=== PATIENT | female | born 1975 | race African-American/Black ===

== ENCOUNTER 2016-03-09 20:16 | Emergency (ER) | payer MEDICARE, OTHER ==
[2016-03-09] MEDS ORDERED: Albuterol Sulfate 2.5 mg/0.5 ml Neb ONE (20:52)
[2016-03-09] MEDS ORDERED: predniSONE 20 MG TAB ONE (21:29)
--- NOTE | 2016-03-09 22:03 | RAD ---
SINGLE VIEW OF THE CHEST 03/09/16 INDICATION: Headache, chills, bodyaches. IMPRESSION: No acute cardiopulmonary abnormality. The examination does not appear appreciably changed from the c omparison dated 03/22/14. POS: [facility]
--- NOTE | 2016-03-09 22:19 | ERRECORD ---
[facility] HPI FLU-LIKE SYNDROME (20:50 SROB) CHIEF COMPLAINT: Patient presents for evaluation of body aches, Patient presents for evaluation of fatigue, Patient presents for evaluation of fever, Patient presents for evaluation of upper respiratory infection, Patient presents for evaluation of wheezing and cough with headache. CHIEF COMPLAINT: Patient presents for evaluation of body aches, Patient presents for evaluation of fatigue, Patient presents for evaluation of fever, Patient presents for evaluation of upper respiratory infection, Patient presents for evaluation of wheezing and cough with headache. Her daugheter and have the same illness. HISTORIAN: History provided by patient. LOCATION: No localizing symptoms. QUALITY: Pain is dull in nature, described as aching. SEVERITY: Maximum severity of pain rated as 6/10, Current severity of pain rated as 6/10. TIME COURSE: Gradual onset of symptoms, 3, days priror to arrival, Symptoms are worsening. ASSOCIATED WITH: Associated with cough, Associated with headache, Associated with shortness of breath. EXACERBATED BY: Patient's condition exacerbated by nothing. RELIEVED BY: Patient's condition relieved by nothing. IMMUNIZATION STATUS: Flu vaccine not up to date. ROS (20:52 SROB) CONSTITUTIONAL: Historian reports fatigue, reports fever, reports malaise. EYES: Negative eye review of systems. ENT: Historian reports rhinorrhea. CARDIOVASCULAR: Negative cardiovascular review of systems. RESPIRATORY: Historian reports cough, reports shortness of breath, reports wheezing. GI: Negative gastrointestinal review of systems. GENITOURINARY FEMALE: Negative genitourinary review of systems. MUSCULOSKELETAL: Historian reports myalgias. SKIN: Negative skin review of systems. NEUROLOGIC: Historian denies confusion, denies dizziness, denies focal weakness, denies gait changes, reports headache, reports lethargy, denies paresthesias. HEMO/LYMPHATIC: Normal hematologic/lymphatic system review. PSYCHIATRIC: Negative psychiatric review of systems. PAST MEDICAL HISTORY (20:41 LHAL) MEDICAL HISTORY: Flu vaccine up to date, Tetanus immunization up to date, Pneumococcal vaccine up to date, Past medical history includes history of diabetes, Type II, Past medical history includes history of hyperlipidemia, high cholesterol, Past medical history includes history of hypertension, Past medical &a-1R&a+25V*p+0X*[id number]*c202B*c15G*c2P*p-0X&a-25V&a+1R Name: Pallavi Atkins : 1975 F40 MedRec: [id number] AcctNum: [id number] Prepared: Josh Mar 09, 2016 22:19 by Interface Page 1 of 4 pMD [facility] EMERGENCY RECORD history includes pulmonary disease, asthma. FEMALE SURGICAL HISTORY: IUD REMOVAL. PSYCHIATRIC HISTORY: Psychiatric history includes, anxiety, depression, schizophrenia, Psychiatric history includes history of post-traumatic stress disorder. SOCIAL HISTORY: Patient denies alcohol use, Patient denies drug use, Patient currently uses tobacco, smokes cigarettes, daily, Patient smokes 1/2 packs per day, Lives at home, with family. KNOWN ALLERGIES No Known Allergies (Unconfirmed) No Known Drug Allergies CURRENT MEDICATIONS (20:40 LHAL) lisinopril: TABLET : Strength - 10 mg : ORAL Patient Dose: 40 mg Oral once a day. Lantus: CARTRIDGE (ML) : Strength - 100 unit/mL : SUBCUTANEOUS Patient Dose: 40 units Subcutaneous 2 times a day. hydrochlorothiazide: TABLET : Strength - 25 mg : ORAL Patient Dose: 25 mg Oral 2 times a day. metFORMIN: TABLET : Strength - 1,000 mg : ORAL Patient Dose: 1000 mg Oral 2 times a day. ProAir HFA: HFA AEROSOL WITH ADAPTER (GRAM) : Strength - 90 mcg : INHALATION Patient Dose: 2 puff(s) Inhaler As Needed. albuterol sulfate: VIAL, NEBULIZER (EA) : Strength - 2.5 mg/0.5 mL : INHALATION Patient Dose: 1 units Nebulize As Needed. amLODIPine: TABLET : Strength - 10 mg : ORAL Patient Dose: 10 mg Oral once a day (in the morning). atorvastatin: TABLET : Strength - 40 mg : ORAL Patient Dose: 40 mg Oral. atenolol: TABLET : Strength - 25 mg : ORAL Patient Dose: 25 mg Oral once a day. cyclobenzaprine: TABLET : Strength - 10 mg : ORAL Patient Dose: 1 tab(s) Oral every 4 hours prn.muscle spasm. naproxen: TABLET : Strength - 500 mg : ORAL Patient Dose: 1 tab(s) Oral 2 times a day (after meals).please take 1 tablet twice a day as needed for pain, please take with food and a glass of water. &a-1R&a+25V*p+0X*[id number]*c202B*c15G*c2P*p-0X&a-25V&a+1R Name: Pallavi Atkins : 1975 F40 MedRec: [id number] AcctNum: [id number] Prepared: Sat Mar 09, 2016 22:19 by Interface Page 2 of 4 pMD [facility] EMERGENC[facility] RECORD VITAL SIGNS VITAL SIGNS: BP: 143/67 (Sitting), Pulse: 103 (Regular), Resp: 18 (Non-Labored), Temp: 98.6 (Oral), Pain: 6 (Constant), O2 sat: 96 on Room Air, Time: 03/09/2016 20:38. (20:38 LHAL) BP: 128/70, Pulse: 101, Resp: 18, Temp: 97.6, Pain: 5, O2 sat: 96 on RA, Time: 03/09/2016 22:05. (22:05 LHAL) PHYSICAL EXAM (20:53 SROB) CONSTITUTIONAL: Vital signs reviewed, Patient afebrile, Pulse, tachycardic. HEAD: Head exam normal. EYES: Eye exam normal. ENT: Ear exam normal, Nose exam included findings of, turbinate mucosa discharge, Pharynx exam normal, Uvula exam normal. NECK: Neck exam normal, Neck exam included findings of normal range of motion, Trachea midline, Tenderness. RESPIRATORY CHEST: Wheezing present, Rhonchi present. CARDIOVASCULAR: Cardiovascular assessment normal. ABDOMEN FEMALE: Abdominal exam normal. BACK: Back exam normal. UPPER EXTREMITY: Upper extremity exam normal. LOWER EXTREMITY: Lower extremity exam normal. NEURO: Neuro exam normal. SKIN: Skin exam normal. PSYCHIATRIC: Psychiatric exam normal. RADIOLOGYINTERPRETATION (21:50 SROB) CHEST: Chest films negative, no infiltrates, no pneumothorax, no hemothorax, no masses, no cardiomegaly, no congestive heart failure, no effusion, no free air. MEDICATION ADMINISTRATION SUMMARY Drug Name: predniSONE oral, Dose Ordered: 2 tab(s), Route: Oral, Status: Given, Time: 21:47 03/09/2016, Drug Name: DuoNeb, Dose Ordered: 3 mL, Route: Nebulize, Status: Given, Time: 21:20 03/09/2016, Drug Name: Proventil solution for nebulization, Dose Ordered: 5 mg, Route: Nebulize, Status: Given, Time: 20:51 03/09/2016, Detailed record available in Medication Service section. DOCTOR NOTES (21:50 SROB) RE-EVALUATION: The patient's condition has improved, Barely wheezing now. Fels better. PROBLEM LIST No recorded problems &a-1R&a+25V*p+0X*[id number]*c202B*c15G*c2P*p-0X&a-25V&a+1R Name: Pallavi Atkins : 1975 F40 MedRec: [id number] AcctNum: [id number] Prepared: Sat Mar 09, 2016 22:19 by Interface Page 3 of 4 pMD [facility] EMERGENCY RECORD DIAGNOSIS (21:54 SROB) FINAL: PRIMARY: acute asthma attack, ADDITIONAL: Upper respiratory infection, Viral infection. PRESCRIPTION ProAir HFA: HFA AEROSOL WITH ADAPTER (GRAM) : 90 mcg : INHALATION : Quantity: 1-2 Unit: puff(s) Route: INHALATION Schedule: every 4 hours prn Dispense: 1 Unit: vial(s) May substitute. Refills: 1 . (21:56 SROB) NOTES: Dispense Pro air plus spacer No Refills. (21:56 SROB) predniSONE oral: TABLET : 20 mg : ORAL : Quantity: 2 Unit: tab(s) Route: ORAL Schedule: once a day (in the morning) Dispense: 10 Unit: tab(s) May substitute. Refills: No Refills . (21:57 SROB) NOTES: No Refills. (21:57 SROB) acetaminophen-codeine: TABLET : 325 mg-30 mg : ORAL : Quantity: 1-2 Unit: tab(s) Route: ORAL Schedule: every 6 hours PRN Dispense: 30 Unit: tab(s) May substitute. Refills: No Refills . (21:57 SROB) NOTES: No Refills. (21:57 SROB) azithromycin oral: TABLET : 250 mg : ORAL : Quantity: 1 Unit: tab(s) Route: ORAL Schedule: once a day (in the morning) Dispense: 6 Unit: tab(s) May substitute. Refills: No Refills . (21:59 SROB) NOTES: TAke 2 tabs on first day and then one daily No Refills. (21:59 SROB) DISPOSITION PATIENT: Disposition Type: Discharge, Disposition: *Discharge Home, Disposition Transport: Ambulatory, Condition: Good. (21:55 SROB) Patient left the department. (22:16 LHAL) Jones: LHAL=RON Armas, Rebekah SROB=MD Osmany, Victoriano &a-1R&a+25V*p+0X*[id number]*c202B*c15G*c2P*p-0X&a-25V&a+1R Name: Pallavi Atkins : 1975 F40 MedRec: [id number] AcctNum: [id number] Prepared: Josh Mar 09, 2016 22:19 by Interface Page 4 of 4 pMD [facility]TDD
--- NOTE | 2016-03-09 22:29 | PICIS ---
[facility] EMERGENCY RECORD TRIAGE (20:39 LHAL) TRIAGE NOTES: MCCRAY, CHILLS, BODY ACHES, COUGH X 3 DAYS. (20:39 LHAL) PATIENT: NAME: Pallavi Atkins, AGE: 40, GENDER: female, : Mon 1975, TIME OF GREET: Sat Mar 09, 2016 20:17, PREFERRED LANGUAGE: Uzbek, ETHNICITY: Not or , ECODE BILLING MAP: [facility], SSN: [id number], Zip Code: [address], KG WEIGHT: [phone], PHONE: , , , PERSON ID: [id number], PCP: MD Solitario Katherine. (20:39 LHAL) COMPLAINT: FLU LIKE SYMPTOMS. (20:39 LHAL) ADMISSION: URGENCY: 5 Fast Track, ADMISSION SOURCE: Home, TRANSPORT: CAR, BED: TRIAGE. (20:39 LHAL) ASSESSMENT: Assessment: MCCRAY, CHILLS, BODY ACHES, COUGH X 3 DAYS, Symptoms began 3 DAYS AGO. (20:41 LHAL) PAIN: Patient complains of pain described as, aching, on a scale 0-10 patient rates pain as 6, Location GENERALIZED BODY ACHES, Pain is constant, No aggravating factors, No relieving factors. (20:41 LHAL) IMMUNIZATIONS: Flu vaccine not up to date, Tetanus immunization up to date, Pneumococcal vaccine not up to date, Notes: TAKING NYQUIL. (20:41 LHAL) SIRS SCORING: Heart Rate 55-109 (0), Temp range 96.8-101.1 (0), respiratory rate 12-24 (0), Mental Status altered: no (0), Yes, Infection or Suspected Infection. (20:41 LHAL) TRIAGE SCREENING: Patient denies suicidal ideation, Patient denies presence of domestic violence. (20:41 LHAL) LMP: Last menstrual period: ONE WK. (20:41 LHAL) PROVIDERS: TRIAGE NURSE: Rebekah Armas RN. (20:39 LHAL) VITAL SIGNS: BP 143/67, (Sitting), Pulse 103, (Regular), Resp 18, (Non-Labored), Temp 98.6, (Oral), Pain 6, (Constant), O2 Sat 96, on Room Air, Time 03/09/2016 20:38. (20:38 LHAL) PREVIOUS VISIT ALLERGIES: No Known Drug Allergies. (20:39 LHAL) No Known Drug Allergies. (20:41 LHAL) KNOWN ALLERGIES No Known Allergies (Unconfirmed) No Known Drug Allergies CURRENT MEDICATIONS (20:40 LHAL) lisinopril: TABLET : Strength - 10 mg : ORAL Patient Dose: 40 mg Oral once a day. Lantus: CARTRIDGE (ML) : Strength - 100 unit/mL : SUBCUTANEOUS Patient Dose: 40 units Subcutaneous 2 times a day. hydrochlorothiazide: TABLET : Strength - 25 mg : ORAL Patient Dose: 25 mg Oral 2 times a day. &a-1R&a+25V*p+0X*n7269B*c202B*c15G*c2P*p-0X&a-25V&a+1R Name: Pallavi Atkins : 1975 F40 MedRec: [id number] AcctNum: [id number] Prepared: Sat Mar 09, 2016 22:26 by Interface Page 1 of 9 pMD [facility] EMERGENCY RECORD metFORMIN: TABLET : Strength - 1,000 mg : ORAL Patient Dose: 1000 mg Oral 2 times a day. ProAir HFA: HFA AEROSOL WITH ADAPTER (GRAM) : Strength - 90 mcg : INHALATION Patient Dose: 2 puff(s) Inhaler As Needed. albuterol sulfate: VIAL, NEBULIZER (EA) : Strength - 2.5 mg/0.5 mL : INHALATION Patient Dose: 1 units Nebulize As Needed. amLODIPine: TABLET : Strength - 10 mg : ORAL Patient Dose: 10 mg Oral once a day (in the morning). atorvastatin: TABLET : Strength - 40 mg : ORAL Patient Dose: 40 mg Oral. atenolol: TABLET : Strength - 25 mg : ORAL Patient Dose: 25 mg Oral once a day. cyclobenzaprine: TABLET : Strength - 10 mg : ORAL Patient Dose: 1 tab(s) Oral every 4 hours prn.muscle spasm. naproxen: TABLET : Strength - 500 mg : ORAL Patient Dose: 1 tab(s) Oral 2 times a day (after meals).please take 1 tablet twice a day as needed for pain, please take with food and a glass of water. VITAL SIGNS VITAL SIGNS: BP: 143/67 (Sitting), Pulse: 103 (Regular), Resp: 18 (Non-Labored), Temp: 98.6 (Oral), Pain: 6 (Constant), O2 sat: 96 on Room Air, Time: 03/09/2016 20:38. (20:38 LHAL) BP: 128/70, Pulse: 101, Resp: 18, Temp: 97.6, Pain: 5, O2 sat: 96 on RA, Time: 03/09/2016 22:05. (22:05 LHAL) NURSING ASSESSMENT: FOCUSED (Sat Mar 09, 2016 20:39 LHAL) CONSTITUTIONAL: Patient arrives ambulatory, Gait steady, History obtained from patient, Patient appears, generally ill, obese, uncomfortable, Patient cooperative, Patient alert, Oriented to person, place and time, Skin warm, Skin dry, Skin normal in color, Mucous membranes pink, Mucous membranes moist, Patient is well-groomed, Patient complains of FLU SYMPTOMS, 2024) PT AMBULATES TO RM 5 WITH OTHER FAMILY MEMBERS WHO ARE ER PTS WITH SAME SYMPTOMS, PT WEARING FACE MASK. PAIN: aching pain, GENERALIZED BODY ACHES, No radiation pain, Onset of pain 3 DAYS AGO, constant, on a scale 0-10 patient rates pain as 6, TAKING NYQUIL FOR SYMPTOMS, Pain exacerbated by nothing. EYES: Focused eye assessment finding include pupils equally round and reactive to light, Left pupil 3 mm in size, Right pupil 3 mm in size. &a-1R&a+25V*p+0X*l6376L*c202B*c15G*c2P*p-0X&a-25V&a+1R Name: Pallavi Atkins : 1975 F40 MedRec: [id number] AcctNum: [id number] Prepared: Sat Mar 09, 2016 22:26 by Interface Page 2 of 9 pMD [facility] EMERGENCY RECORD NEURO: Focused neuro assessment findings include patient alert, cooperative, No facial droop noted, Speech coherent, no weakness, no numbness, No loss of consciousness. GCS: GCS Total: 15. RESPIRATORY: Breath sounds with wheezing, to bilateral upper lobes, Notes: INSPIRATORY WHEEZE, OUT OF INHALER, HAS RHONCHI ALSO, STATES PRODUCTIVE COUGH X 3 DAYS, SOMETIMES COUGHS SO HARD MUCOUS IS BLOOD TINGED. ABDOMEN: Focused abdominal assessment findings include abdomen soft, non tender, no diarrhea, no complaint of nausea, no vomiting, Bowel sounds present. GENITOURINARY FEMALE: Focused genitourinary assessment not applicable. MUSCULOSKELETAL: Focused musculoskeletal assessment findings include normal range of motion. LACERATION: Focused laceration assessment not applicable. NOTES: Notes: PT HAS NOT MEASURED HER TEMP. SAFETY: Side rails up, Cart/Stretcher in lowest position, Family at bedside, Call light within reach, Hospital ID band on. NURSING PROCEDURE: DISCHARGE NOTE (22:05 LHAL) DISCHARGE: Patient discharged to home, ambulating without assistance, driving self, accompanied by //partner, Summary of Care printed/ provided, Patient requested and was provided an electronic copy of Discharge Instructions, Transition record given to patient, Discharge instructions given to patient, Simple or moderate discharge teaching performed, by Otf ARMAS RN, Prescriptions given and instructions on side effects given, Name of prescription(s) given: PROAIR, PREDNISONE, ZITHROMAX, TYLENOL #3, Notes: DC HOME STABLE, FEELS BETTER, A&OX3, SKIN PINK W/D, NORMAL EVEN RESPIRATIONS, OCC DRY COUGH, NO DISTRESS, AMBULATES STEADY GAIT. LUNGS CLEAR. BELONGINGS: Belongings and valuables with patient upon arrival to the Emergency Department include:. VITAL SIGNS: BP: 128, / 70, Pulse: 101, Resp: 18, Temp: 97.6, Pain: 5, O2 sat: 96, on: RA. NURSING PROCEDURE: NURSE NOTES NURSES NOTES: Patient re-evaluated by physician. (21:13 LHAL) Patient re-evaluated by physician. (21:27 LHAL) NURSING PROCEDURE: RESPIRATORY INTERVENTIONS PATIENT IDENTIFIER: Patient actively involved in identification process, Patient's identity verified by patient stating name, Patient's identity verified by patient stating date, Patient's identity verified by hospital ID bracelcrow, Patient's identity verified by family member. (20:51 LHAL) Patient actively involved in identification process, Patient's identity verified by patient stating name, Patient's identity verified by patient stating date, Patient's identity verified by hospital &a-1R&a+25V*p+0X*u1758F*c202B*c15G*c2P*p-0X&a-25V&a+1R Name: Pallavi Atkins : 1975 F40 MedRec: [id number] AcctNum: [id number] Prepared: Sat Mar 09, 2016 22:26 by Interface Page 3 of 9 pMD [facility] EMERGENCY RECORD ID bracelet, Patient's identity verified by family member. (22:05 LHAL) RESPIRATORY INTERVENTIONS: Respiratory interventions indicated for wheezing, Respiratory interventions indicated for COUGH, Pre-intervention breath sounds with wheezing, to bilateral upper lobes, Pre-intervention oxygen saturation 96%, by adult/pediatric oxisensor, Patient given ALBUTEROL, 1, Single dose nebulizer, Dose: 5 MG. (20:51 LHAL) Respiratory interventions indicated for wheezing, Pre-intervention oxygen saturation 96%, by adult/pediatric oxisensor, Patient given ALBUTEROL with ATROVENT, Single dose nebulizer, Dose: UNIT DOSE, Notes: 2ND TREATMENT. (22:05 LHAL) FOLLOW-UP: After procedure, oxygen saturation 96%, on room air, After procedure, breath sounds with wheezing, to bilateral upper lobes, Notes: INCREASED BS, NO COUGH NOTED. (21:15 LHAL) SAFETY: Side rails up, Cart/Stretcher in lowest position, Family at bedside, Call light within reach, Hospital ID band on. (20:51 LHAL) NURSING PROCEDURE: TRANSPORT TO TESTS (21:43 KHER) PATIENT IDENTIFIER: Patient actively involved in identification process. TRANSPORT TO TESTS: Transport indicated to facilitate diagnosis, Patient transported to x-ray, via cart, Accompanied by x-ray serology technician, Patient arrived in location at 2142, Patient departed location at 2149. FOLLOW-UP: After procedure, patient returned to emergency department. ORDER DETAILS Order Name: ERRT * l Vol Neb Initial Trmt, Status: Active, Time: 21:11 03/09/2016, User: STEVE, - Ordered for: MD Ceron Sam, - Entered by: RON Armas Linda - Josh Mar 09, 2016 21:11, - Quantity: 1, Order Name: ERRT * l Vol Neb Initial Trmt, Status: Active, Time: 21:20 03/09/2016, User: STEVE, - Ordered for: MD Ceron Sam, - Entered by: RON Armas Linda - Sat Mar 09, 2016 21:20, - Quantity: 1, Order Name: ERRT Pulse Oximeter ER, Status: Active, Time: 21:20 03/09/2016, User: LHAL, - Ordered for: MD Ceron Sam, - Entered by: RON Armas Linda - Sat Mar 09, 2016 21:20, - Quantity: 1, Order Name: XR Chest Pa & Lat STANDARD, Status: Active, Time: 21:30 03/09/2016, User: SROB, - Ordered for: MD Ceron Sam, &a-1R&a+25V*p+0X*d6153P*c202B*c15G*c2P*p-0X&a-25V&a+1R Name: Pallavi Atkins Y : 1975 F40 MedRec: [id number] AcctNum: [id number] Prepared: Sat Mar 09, 2016 22:26 by Interface Page 4 of 9 D [facility] EMERGENCY RECORD - Entered by: MD Ceron Sam - [facility] Mar 09, 2016 21:30, - Quantity: 1. MEDICATION ADMINISTRATION SUMMARY Drug Name: predniSONE oral, Dose Ordered: 2 tab(s), Route: Oral, Status: Given, Time: 21:47 03/09/2016, Drug Name: DuoNeb, Dose Ordered: 3 mL, Route: Nebulize, Status: Given, Time: 21:20 03/09/2016, Drug Name: Proventil solution for nebulization, Dose Ordered: 5 mg, Route: Nebulize, Status: Given, Time: 20:51 03/09/2016, Detailed record available in Medication Service section. MEDICATION SERVICE DuoNeb: Order: DuoNeb (ipratropium bromide/albuterol sulfate) - Dose: 3 mL : Nebulize Schedule: Now Ordered by: Victoriano Ceron MD Entered by: Victoriano Ceron MD Sat Mar 09, 2016 21:14 Documented as given by: Rebekah Armas RN Sat Mar 09, 2016 21:20 Patient, Medication, Dose, Route and Time verified prior to administration. Amount given: 3 ML, Site: Medication administered via Hand-held nebulizer, With oxygen, Correct patient, time, route, dose and medication confirmed prior to administration, Patient advised of actions and side-effects prior to administration, Allergies confirmed and medications reviewed prior to administration, Administered by Otf ARMAS RN, Patient in position of comfort, Side rails up, Cart in lowest position, Family at bedside. : Follow Up : No signs or symptoms of allergic reaction noted, Decreased symptoms, Breath sounds improved. (22:05 LHAL) predniSONE oral: Order: predniSONE oral (prednisone) - Dose: 2 tab(s) : Oral Schedule: Now Ordered by: Victoriano Ceron MD Entered by: Victoriano Ceron MD Sat Mar 09, 2016 21:26 , Acknowledged by: Rebekah Armas RN Sat Mar 09, 2016 21:33 Documented as given by: Rebekah Armas RN Sat Mar 09, 2016 21:47 Patient, Medication, Dose, Route and Time verified prior to administration. Amount given: 40 MG-VOV DR CERON, Site: Medication administered P.O., Correct patient, time, route, dose and medication confirmed prior to administration, Patient advised of actions and side-effects prior to administration, Allergies confirmed and medications reviewed prior to administration, Administered by Otf ARMAS RN, Patient in position of comfort, Side rails up, Cart in lowest position, Family at bedside. : Follow Up : No signs or symptoms of allergic reaction noted. (22:05 LHAL) Proventil solution for nebulization: Order: Proventil solution &a-1R&a+25V*p+0X*t0693K*c202B*c15G*c2P*p-0X&a-25V&a+1R Name: Pallavi Atkins : 1975 F40 MedRec: [id number] AcctNum: [id number] Prepared: Sat Mar 09, 2016 22:26 by Interface Page 5 of 9 pMD [facility] EMERGENCY RECORD for nebulization (albuterol sulfate) - Dose: 5 mg : Nebulize Schedule: Now Ordered by: Victoriano Ceron MD Entered by: Victoriano Ceron MD Sat Mar 09, 2016 20:50 Documented as given by: Rebekah Armas RN Sat Mar 09, 2016 20:51 Patient, Medication, Dose, Route and Time verified prior to administration. Amount given: 5 MG, Site: Medication administered via Hand-held nebulizer, With oxygen, Correct patient, time, route, dose and medication confirmed prior to administration, Patient advised of actions and side-effects prior to administration, Allergies confirmed and medications reviewed prior to administration, Administered by Otf ARMAS RN, Patient in position of comfort, Side rails up, Cart in lowest position, Family at bedside. : Follow Up : No signs or symptoms of allergic reaction noted, Breath sounds improved. (21:15 LHAL) HPI FLU-LIKE SYNDROME (20:50 SROB) CHIEF COMPLAINT: Patient presents for evaluation of body aches, Patient presents for evaluation of fatigue, Patient presents for evaluation of fever, Patient presents for evaluation of upper respiratory infection, Patient presents for evaluation of wheezing and cough with headache. CHIEF COMPLAINT: Patient presents for evaluation of body aches, Patient presents for evaluation of fatigue, Patient presents for evaluation of fever, Patient presents for evaluation of upper respiratory infection, Patient presents for evaluation of wheezing and cough with headache. Her daugheter and have the same illness. HISTORIAN: History provided by patient. LOCATION: No localizing symptoms. QUALITY: Pain is dull in nature, described as aching. SEVERITY: Maximum severity of pain rated as 6/10, Current severity of pain rated as 6/10. TIME COURSE: Gradual onset of symptoms, 3, days priror to arrival, Symptoms are worsening. ASSOCIATED WITH: Associated with cough, Associated with headache, Associated with shortness of breath. EXACERBATED BY: Patient's condition exacerbated by nothing. RELIEVED BY: Patient's condition relieved by nothing. IMMUNIZATION STATUS: Flu vaccine not up to date. ROS (20:52 SROB) CONSTITUTIONAL: Historian reports fatigue, reports fever, reports malaise. EYES: Negative eye review of systems. ENT: Historian reports rhinorrhea. CARDIOVASCULAR: Negative cardiovascular review of systems. &a-1R&a+25V*p+0X*v2625V*c202B*c15G*c2P*p-0X&a-25V&a+1R Name: Pallavi Atkins : 1975 F40 MedRec: [id number] AcctNum: [id number] Prepared: Josh Mar 09, 2016 22:26 by Interface Page 6 of 9 pMD [facility] EMERGENCY RECORD RESPIRATORY: Historian reports cough, reports shortness of breath, reports wheezing. GI: Negative gastrointestinal review of systems. GENITOURINARY FEMALE: Negative genitourinary review of systems. MUSCULOSKELETAL: Historian reports myalgias. SKIN: Negative skin review of systems. NEUROLOGIC: Historian denies confusion, denies dizziness, denies focal weakness, denies gait changes, reports headache, reports lethargy, denies paresthesias. HEMO/LYMPHATIC: Normal hematologic/lymphatic system review. PSYCHIATRIC: Negative psychiatric review of systems. PAST MEDICAL HISTORY (20:41 LHAL) MEDICAL HISTORY: Flu vaccine up to date, Tetanus immunization up to date, Pneumococcal vaccine up to date, Past medical history includes history of diabetes, Type II, Past medical history includes history of hyperlipidemia, high cholesterol, Past medical history includes history of hypertension, Past medical history includes pulmonary disease, asthma. FEMALE SURGICAL HISTORY: IUD REMOVAL. PSYCHIATRIC HISTORY: Psychiatric history includes, anxiety, depression, schizophrenia, Psychiatric history includes history of post-traumatic stress disorder. SOCIAL HISTORY: Patient denies alcohol use, Patient denies drug use, Patient currently uses tobacco, smokes cigarettes, daily, Patient smokes 1/2 packs per day, Lives at home, with family. PHYSICAL EXAM (20:53 SROB) CONSTITUTIONAL: Vital signs reviewed, Patient afebrile, Pulse, tachycardic. HEAD: Head exam normal. EYES: Eye exam normal. ENT: Ear exam normal, Nose exam included findings of, turbinate mucosa discharge, Pharynx exam normal, Uvula exam normal. NECK: Neck exam normal, Neck exam included findings of normal range of motion, Trachea midline, Tenderness. RESPIRATORY CHEST: Wheezing present, Rhonchi present. CARDIOVASCULAR: Cardiovascular assessment normal. ABDOMEN FEMALE: Abdominal exam normal. BACK: Back exam normal. UPPER EXTREMITY: Upper extremity exam normal. LOWER EXTREMITY: Lower extremity exam normal. NEURO: Neuro exam normal. SKIN: Skin exam normal. PSYCHIATRIC: Psychiatric exam normal. EVENTS TRANSFER: Triage to Emergency Triage. (Sat Mar 09, 2016 20:39 &a-1R&a+25V*p+0X*n9067L*c202B*c15G*c2P*p-0X&a-25V&a+1R Name: Pallavi Atkins : 1975 F40 MedRec: [id number] AcctNum: [id number] Prepared: Sat Mar 09, 2016 22:26 by Interface Page 7 of 9 pMD [facility] EMERGENCY RECORD AL) Emergency Triage to Emergency Room -05. (20:57 MBOS) Removed from Emergency Emergency Room -05. (22:16 LHAL) RADIOLOGYINTERPRETATION (21:50 SROB) CHEST: Chest films negative, no infiltrates, no pneumothorax, no hemothorax, no masses, no cardiomegaly, no congestive heart failure, no effusion, no free air. DOCTOR NOTES (21:50 SROB) RE-EVALUATION: The patient's condition has improved, Barely wheezing now. Fels better. PROBLEM LIST No recorded problems DIAGNOSIS (21:54 SROB) FINAL: PRIMARY: acute asthma attack, ADDITIONAL: Upper respiratory infection, Viral infection. DISPOSITION PATIENT: Disposition Type: Discharge, Disposition: *Discharge Home, Disposition Transport: Ambulatory, Condition: Good. (21:55 SROB) Patient left the department. (22:16 LHAL) INSTRUCTION (22:00 SROB) DISCHARGE: ASTHMA, ACUTE (ADULT), URI ANTIBIOTIC TREATMENT ADULT. FOLLOWUP: MD Altaf, Tiffany, [facility], [address] [place] [address], [facility] [address], , Follow up with Primary Care Physician in 3-4 days. PRESCRIPTION ProAir HFA: HFA AEROSOL WITH ADAPTER (GRAM) : 90 mcg : INHALATION : Quantity: 1-2 Unit: puff(s) Route: INHALATION Schedule: every 4 hours prn Dispense: 1 Unit: vial(s) May substitute. Refills: 1 . (21:56 SROB) NOTES: Dispense Pro air plus spacer No Refills. (21:56 SROB) predniSONE oral: TABLET : 20 mg : ORAL : Quantity: 2 Unit: tab(s) Route: ORAL Schedule: once a day (in the morning) Dispense: 10 Unit: tab(s) May substitute. Refills: No Refills . (21:57 SROB) NOTES: No Refills. (21:57 SROB) acetaminophen-codeine: TABLET : 325 mg-30 mg : ORAL : Quantity: 1-2 Unit: tab(s) Route: ORAL Schedule: every 6 hours PRN Dispense: 30 Unit: tab(s) May substitute. Refills: No Refills . (21:57 SROB) NOTES: No Refills. (21:57 SROB) &a-1R&a+25V*p+0X*h8815X*c202B*c15G*c2P*p-0X&a-25V&a+1R Name: Pallavi Atkins : 1975 F40 MedRec: [id number] AcctNum: [id number] Prepared: Sat Mar 09, 2016 22:26 by Interface Page 8 of 9 pMD [facility] EMERGENCY RECORD azithromycin oral: TABLET : 250 mg : ORAL : Quantity: 1 Unit: tab(s) Route: ORAL Schedule: once a day (in the morning) Dispense: 6 Unit: tab(s) May substitute. Refills: No Refills . (21:59 SROB) NOTES: TAke 2 tabs on first day and then one daily No Refills. (21:59 SROB) IMAGING *DISCHARGE INSTRUCTIONS RECEIPT: Image captured from scanner. (22:06 LHAL) Image captured from scanner. (22:07 LHAL) *SUPPLY CHARGE SHEET: Image captured from scanner. (22:07 LHAL) ADMIN DIGITAL SIGNATURE: MD Osmany, Victoriano. (22:01 SROB) RON Armas, Rebekah. (22:16 LHAL) Jones: KHCHUCHO=CHARLIE Valentin Kayce LHAL=RON Armas Linda MBOS=RON Urbina Marie SROB=MD Osmany, Victoriano &a-1R&a+25V*p+0X*u8742K*c202B*c15G*c2P*p-0X&a-25V&a+1R Name: Pallavi Atkins : 1975 F40 MedRec: [id number] AcctNum: [id number] Prepared: Sat Mar 09, 2016 22:26 by Interface Page 9 of 9 pMD MTDD
== END 2016-03-09 22:05 | disposition home or self-care (01) ==
LOC: NAV ERS 20:16
DX: J45.909 Unspecified asthma, uncomplicated (principal); J06.9 Acute upper respiratory infection, unspecified; I10 Essential (primary) hypertension; E11.9 Type 2 diabetes mellitus without complications; E78.00 Pure hypercholesterolemia, unspecified; E78.5 Hyperlipidemia, unspecified; F32.9 Major depressive disorder, single episode, unspecified; F41.9 Anxiety disorder, unspecified; F20.9 Schizophrenia, unspecified; Z79.899 Other long term (current) drug therapy; Z79.4 Long term (current) use of insulin
CPT/HCPCS: 71020; 94640; 94760; J7506; J7611; J7620

== ENCOUNTER 2016-06-03 11:54 | Outpatient (CLI) | payer MEDICARE, OTHER ==
[2016-06-03 12:28] LABS: #Basophils 0.1 thou/uL (0.0-0.2); #Eosinphils 0.4 thou/uL (0.0-0.7); #Lymphocytes 3.4 thou/uL (1.20-3.40); #Monocytes 0.6 thou/uL (0.11-0.59); %Eosinophils 2.7 % (0.0-10.0); %Lymphocytes 25.4 % (21.0-51.0); %Monocytes 4.2 % (0.0-10.0); %Neutrophils 66.7 % (42.0-75.0); Mean Corpuscular HGB CONC 31.3 g/dL (32.0-36.0); Mean Corpuscular Hemoglobin 25.7 pg (27.0-31.0); Mean Corpuscular Volume 82.1 fl (81.0-99.0); Mean Platelet Volume 6.9 fL (7.4-10.4); Platelet Count 383 thou/uL (130-400); RBC Distribution Width 14.8 % (11.5-14.5); Red Blood Cell (RBC) Count 5.08 mill/uL (4.20-5.40); White Blood Cell (WBC) Count 13.5 thou/uL (4.8-10.8)
[2016-06-03 12:30] LABS: ALT (SGPT) 13 U/L (0-55); AST (SGOT) 12 U/L (5-34); Albumin 3.1 g/dL (3.5-5.0); Alkaline Phosphatase 114 U/L (40-150); Anion Gap 15 mmol/L (10-20); BUN (Urea Nitrogen) 8 mg/dL (7.0-18.7); Bilirubin, Total 0.4 mg/dL (0.2-1.2); Calc. Creatinine Clearance 0 mL/min (70-130); Calcium 8.5 mg/dL (7.8-10.44); Carbon Dioxide 20 mmol/L (22-29); Cardiac Risk 6.2 (Less than 4.5); Chloride 102 mmol/L (98-107); Cholesterol 217 mg/dL (< 200 Desired); Estimated GFR-MDRD Greater than 90; Globulin 4.3 g/dL (2.4-3.5); Glucose 300 mg/dL (70-105); HDL Cholesterol 35 mg/dL (>60 Neg Risk); LDL Cholesterol, Calculated 153 mg/dL; Potassium 3.9 mmol/L (3.5-5.1); Protein, Total 7.4 g/dL (6.0-8.3); Sodium 133 mmol/L (136-145); Triglycerides 143 mg/dL (Less than 150)
== END 2016-06-03 11:55 | disposition home or self-care (01) ==
LOC: NAV LAB 11:54
PROVIDERS: ATTEND Family Medicine
DX: E11.9 Type 2 diabetes mellitus without complications (principal); I10 Essential (primary) hypertension; E78.5 Hyperlipidemia, unspecified
CPT/HCPCS: 36415; 80053; 80061; 83036; 84443; 85025

== ENCOUNTER 2016-07-10 15:46 | Outpatient (CLI) | payer MEDICARE, OTHER ==
[2016-07-10 16:05] LABS: #Basophils 0.1 thou/uL (0.0-0.2); #Eosinphils 0.6 thou/uL (0.0-0.7); #Lymphocytes 4.8 thou/uL (1.20-3.40); #Monocytes 0.7 thou/uL (0.11-0.59); %Basophils 0.5 % (0.0-1.0); %Eosinophils 4.6 % (0.0-10.0); %Lymphocytes 36.3 % (21.0-51.0); %Monocytes 5.2 % (0.0-10.0); %Neutrophils 53.5 % (42.0-75.0); Mean Corpuscular HGB CONC 30.6 g/dL (32.0-36.0); Mean Corpuscular Volume 81.8 fl (81.0-99.0); Platelet Count 413 thou/uL (130-400); RBC Distribution Width 14.7 % (11.5-14.5); Red Blood Cell (RBC) Count 5.21 mill/uL (4.20-5.40); White Blood Cell (WBC) Count 13.1 thou/uL (4.8-10.8)
[2016-07-10 16:27] LABS: INR-International Normal Ratio 0.9; PTT 29.7 SEC (22.9-36.1); Prothrombin Time 12.5 SEC (12.0-14.7)
== END 2016-07-10 15:47 | disposition home or self-care (01) ==
LOC: NAV LAB 15:46
PROVIDERS: ATTEND Anesthesiology
DX: D68.9 Coagulation defect, unspecified (principal)
CPT/HCPCS: 36415; 85025; 85610; 85730

== ENCOUNTER 2016-09-17 11:24 | Emergency (ER) | payer MEDICARE, OTHER ==
[2016-09-17] MEDS ORDERED: Ketorolac Tromethamine 30 MG/ML VIAL ONE (12:01)
[2016-09-17] MEDS ORDERED: Sodium Chloride 0.9% 1,000 ML ONE (12:01)
[2016-09-17 12:26] LABS: CKMB 0.2 ng/mL (0-6.6); Troponin I Less than 0.010 ng/mL (< 0.028)
--- NOTE | 2016-09-17 12:28 | RAD ---
AP CHEST: Indication: Shortness of breath. Comparison: 03-09-16 FINDINGS: Lungs are clear. Cardiomediastinal silhouette is within normal limits. No acute osseous abnormality is evident. IMPRESSION: No acute cardiopulmonary abnormality. POS: H
[2016-09-17 12:40] LABS: Bilirubin Negative (Negative); Blood, Urine Negative (Negative); Clarity Clear (Clear); Glucose, Urine (Dipstick) 500 mg/dL (Negative); Leukocyte Negative (Negative); Nitrite Negative (Negative); Protein, Urine (Dipstick) Trace mg/dL (Neg-Trace)
[2016-09-17 12:42] LABS: #Basophils 0.1 thou/uL (0.0-0.2); #Eosinphils 0.4 thou/uL (0.0-0.7); #Lymphocytes 3.1 thou/uL (1.20-3.40); #Monocytes 0.6 thou/uL (0.11-0.59); #Neutrophils 9.9 thou/uL (1.40-6.50); %Basophils 0.9 % (0.0-1.0); %Eosinophils 2.7 % (0.0-10.0); %Lymphocytes 21.8 % (21.0-51.0); %Monocytes 4.3 % (0.0-10.0); %Neutrophils 70.3 % (42.0-75.0); Hemoglobin 13.3 g/dL (12.0-16.0); Mean Corpuscular HGB CONC 30.9 g/dL (32.0-36.0); Mean Corpuscular Hemoglobin 25.2 pg (27.0-31.0); Mean Corpuscular Volume 81.3 fl (81.0-99.0); Mean Platelet Volume 6.8 fL (7.4-10.4); Platelet Count 406 thou/uL (130-400); RBC Distribution Width 13.8 % (11.5-14.5); Red Blood Cell (RBC) Count 5.27 mill/uL (4.20-5.40)
[2016-09-17 12:43] LABS: Differential Comment SCANNED; Reflex for Review?? YES
[2016-09-17] MEDS ORDERED: traMADol HCl 50 MG TAB ONE (13:14)
[2016-09-17 13:24] LABS: ALT (SGPT) 12 U/L (8-55); AST (SGOT) 11 U/L (5-34); Albumin 3.4 g/dL (3.5-5.0); Alkaline Phosphatase 137 U/L (40-150); Anion Gap 20 mmol/L (10-20); BUN (Urea Nitrogen) 8 mg/dL (7.0-18.7); Bilirubin, Total 0.3 mg/dL (0.2-1.2); CK (CPK) 51 U/L (29-168); Calc. Creatinine Clearance 0 mL/min (70-130); Calcium 9.2 mg/dL (7.8-10.44); Carbon Dioxide 19 mmol/L (22-29); Chloride 101 mmol/L (98-107); Estimated GFR-MDRD Greater than 90; Globulin 4.9 g/dL (2.4-3.5); Glucose 356 mg/dL (70-105); Protein, Total 8.3 g/dL (6.0-8.3); Sodium 136 mmol/L (136-145)
[2016-09-17] MEDS ORDERED: Insulin Regular 300 UNITS/3 ML VIAL ONE (13:28)
== END 2016-09-17 14:02 | disposition home or self-care (01) ==
LOC: NAV ERS 11:24
DX: J02.9 Acute pharyngitis, unspecified (principal); M25.551 Pain in right hip; E11.65 Type 2 diabetes mellitus with hyperglycemia; E78.5 Hyperlipidemia, unspecified; I10 Essential (primary) hypertension; J45.909 Unspecified asthma, uncomplicated; F41.9 Anxiety disorder, unspecified; F32.9 Major depressive disorder, single episode, unspecified; F20.9 Schizophrenia, unspecified; F17.210 Nicotine dependence, cigarettes, uncomplicated; Z79.899 Other long term (current) drug therapy; Z79.4 Long term (current) use of insulin
CPT/HCPCS: 36416; 71010; 80053; 81003; 82550; 82553; 84484; 85025; 85060; 87081; 87086; 87430; 93005; 96361; 96374; 96375; J1815; J1885; J7050